=== PATIENT | male | born 1955 | race African-American/Black ===

== ENCOUNTER 2017-12-03 11:44 | Emergency (ER) | payer OTHER ==
[~2017-12-03] VITALS: Ht 185.4 cm; Wt 84.0 kg
[2017-12-03] MEDS ORDERED: TETANUS, DIPHTHERIA, PERTUSSIS VAC/PF 0.5ML (>7YR OLD) IM ONE (18:45)
[2017-12-03] MEDS ORDERED: AMOXICILLIN/POTASSIUM CLAVULANATE 875/125MG TAB PO ONE (19:00)
[2017-12-03] MEDS ORDERED: IBUPROFEN 400MG TABLET PO ONE (19:00)
[2017-12-03 20:24] VITALS: BP 122/74
== END 2017-12-03 20:27 | disposition home or self-care (01) ==
LOC: ER 11:44
DX: S01.451A Open bite of right cheek and temporomandibular area, initial encounter (principal); F17.200 Nicotine dependence, unspecified, uncomplicated; F12.10 Cannabis abuse, uncomplicated; M19.90 Unspecified osteoarthritis, unspecified site; W54.0XXA Bitten by dog, initial encounter; Y93.89 Activity, other specified; Y92.89 Other specified places as the place of occurrence of the external cause; Y99.8 Other external cause status
CPT/HCPCS: 90471; 90715; 99283

== ENCOUNTER 2018-07-06 16:54 | Emergency (ER) | payer OTHER ==
[~2018-07-06] VITALS: Ht 182.9 cm; Wt 75.0 kg
[2018-07-06 18:43] LABS: CLARITY URINE CLEAR (CLEAR); COLOR URINE DARK YELLOW (YELLOW); KETONES URINE TRACE (NEGATIVE); LEUKOCYTE ESTERASE URINE TRACE (NEGATIVE); NITRITE URINE NEGATIVE (NEGATIVE); OCCULT BLOOD URINE NEGATIVE (NEGATIVE); PROTEIN URINE NEGATIVE (NEGATIVE)
[2018-07-06 20:34] VITALS: BP 115/77
== END 2018-07-06 20:38 | disposition home or self-care (01) ==
LOC: ER 16:54
DX: K40.90 Unilateral inguinal hernia, without obstruction or gangrene, not specified as recurrent (principal); F12.10 Cannabis abuse, uncomplicated; M19.90 Unspecified osteoarthritis, unspecified site; Z87.19 Personal history of other diseases of the digestive system
CPT/HCPCS: 81003; 99283

== ENCOUNTER 2018-08-07 09:36 | Emergency (ER) | payer OTHER ==
[~2018-08-07] VITALS: Ht 185.4 cm; Wt 85.0 kg
[2018-08-07] MEDS ORDERED: ACETAMINOPHEN 325MG TABLET PO ONE (10:30)
[2018-08-07] MEDS ORDERED: ASPIRIN 81MG TABLET PO ONE (10:30)
[2018-08-07 10:56] LABS: BASOPHILS % 0.7 % (0.0-2.0); EOSINOPHILS % 2.6 % (0.0-5.0); HEMATOCRIT. 44.7 % (42.0-52.0); LYMPHOCYTES % 43.5 % (20.0-50.0); MEAN CORPUSCULAR VOLUME 86.3 fL (80.0-94.0); MEAN PLATELET VOLUME 7.8 fl (7.4-10.4); MONOCYTES % 9.2 % (2.0-8.0); PLATELET 200 x1000/uL (130-400); RED BLOOD CELL COUNT 5.17 mill/uL (4.7-6.1); RED CELL DISTRIBUTION WIDTH 14.2 % (11.6-14.6)
[2018-08-07 11:06] LABS: CHLORIDE 108 mEq/L (98-107)
[2018-08-07 11:30] LABS: HEPATITIS B SURFACE ANTIGEN NEGATIVE
[2018-08-07 11:58] LABS: HEPATITIS B CORE AB IGM NEGATIVE
[2018-08-07 12:00] LABS: HEPATITIS A AB IGM NEGATIVE (NEGATIVE)
[2018-08-07 17:15] VITALS: BP 123/75
[2018-08-07 17:42] LABS: CLARITY URINE CLEAR (CLEAR); COLOR URINE YELLOW (YELLOW); KETONES URINE TRACE (NEGATIVE); LEUKOCYTE ESTERASE URINE NEGATIVE (NEGATIVE); NITRITE URINE NEGATIVE (NEGATIVE); OCCULT BLOOD URINE NEGATIVE (NEGATIVE); PROTEIN URINE NEGATIVE (NEGATIVE); SPECIFIC GRAVITY URINE 1.024 (1.005-1.030); UROBILINOGEN URINE 0.2 E.U./dL (0.2-1.0)
[2018-08-07 18:43] LABS: *BARBITURATES SCREEN URINE NEGATIVE (NEGATIVE)
[2018-08-07 18:44] LABS: *AMPHETAMINES SCREEN URINE NEGATIVE (NEGATIVE); *BENZODIAZEPINES SCREEN URINE NEGATIVE (NEGATIVE); *COCAINE SCREEN URINE NEGATIVE (NEGATIVE); CANNABINOID URINE SCREEN PRESUMTIVE POSITIVE (NEGATIVE); OPIATES URINE SCREEN NEGATIVE (NEGATIVE); PHENCYCLIDINE URINE SCREEN NEGATIVE (NEGATIVE)
[2018-08-07 18:53] LABS: METHADONE URINE SCREEN NEGATIVE (NEGATIVE)
[2018-08-08 13:06] LABS: HIV SCREEN 4G Non Reactive (Non Reactive)
== END 2018-08-07 17:51 | disposition home or self-care (01) ==
LOC: ER 09:36
DX: M94.0 Chondrocostal junction syndrome [Tietze] (principal); E86.0 Dehydration; E87.8 Other disorders of electrolyte and fluid balance, not elsewhere classified; R74.0 Nonspecific elevation of levels of transaminase and lactic acid dehydrogenase [LDH]; R73.03 Prediabetes; Z86.19 Personal history of other infectious and parasitic diseases
CPT/HCPCS: 36415; 71045; 80053; 80305; 81003; 83036; 83735; 83880; 84484; 85025; 87040; 87086; 87389; 93005; 99285; Z7610; 86705; 86709; 86803; 87340